=== PATIENT | female | born 1960 | race Caucasian/White ===

== ENCOUNTER 2024-09-28 21:51 | Emergency (ER) | payer MEDICAID, OTHER ==
[~2024-09-28] VITALS: Ht 172.7 cm; Wt 91.0 kg
[2024-09-28] MEDS ORDERED: ASPirin 81 mg TAB PO ONE (22:45)
--- NOTE | 2024-09-28 22:47 | ED.PDOC ---
History of Present Illness HPI Comments 63-year-old female came to ER via EMS due to chest heaviness. Patient does have a history of hypertension, status post CABG. Patient is at a green party earlier with friends, having alcohol drinks when she started having chest heaviness. Patient still heavily intoxicated at this time of care. She denies any associated shortness of breath, lightheadedness, dizziness, nausea, vomiting, cough. She frequently gets episodes of chest heaviness. Chief Complaint: Chest pain Time Seen by MD: 22:46 Primary Care Provider: ASUNCION Wang Notes: Shift Superintendent Notes Allergies: Coded Allergies: NO KNOWN ALLERGIES (Unverified , 12/16/23) Information Source: Patient Mode of Arrival: EMS Severity: Moderate Timing: Minutes Review of Systems REVIEW OF SYSTEMS: No fever, no chills, or fatigue HEENT: No sore throat, no earache, no congestion, no neck pain. Cardiac: (+) chest pain. No palpitations. Lungs: No shortness of breath, no cough. GI: No nausea, no vomiting, no diarrhea, no constipation, no abdominal pain : No dysuria, frequency, or urgency. No hematuria. Musculoskeletal: No joint pain , no joint swelling, no extremity edema. Skin: No rash, no itching. Neuro: No headache, no dizziness, no weakness Vital Signs Vital Signs Date Time Temp Pulse Resp B/P (MAP) Pulse Ox O2 Delivery O2 Flow Rate FiO2 09/28/24 23:50 98.5 66 14 109/71 (84) 100 Physical Exam General: Awake, alert and oriented. No acute distress. Skin: Skin in warm, dry and intact. Appropriate color for ethnicity. Nailbeds pink with no cyanosis. HEENT: The head is normocephalic and atraumatic. Conjunctivae are clear without exudates or hemorrhage. Sclera is non-icteric. EOM are intact. No signs of nystagmus. Eyelids are normal in appearance without swelling or lesions. Oral mucosa is pink and moist Neck: The neck is supple with normal range of motion. No JVD. Cardiac: Heart rate and rhythm are normal. No murmurs, gallops, or rubs are auscultated. Respiratory: No signs of respiratory distress. Lung sounds are clear in all lobes bilaterally without rales, ronchi, or wheezes. Abdominal: Abdomen is soft, non-tender without distention. Bowel sounds are present and normoactive in all four quadrants. Extremities: Upper and lower extremities are atraumatic in appearance without deformity or edema. Neurological: The patient is awake, alert and oriented to person, place, and time with normal speech. Speech is clear. There is no facial asymmetry. Psychiatric: Appropriate mood and affect. Good judgement and insight. No visual or auditory hallucinations. 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 Was a procedure done?: No EKG EKG : Pulse Rate (adult): 59 Cardiac Rhythm: NSR Block: RBBB Comments LAFB Differential Dx Considerations may include: Musculoskeletal pain. Coronary artery disease. [place]. Anxiety. Alcohol intoxication X-Ray, Labs, Meds, VS Vital Signs Date Time Temp Pulse Resp B/P (MAP) Pulse Ox O2 Delivery O2 Flow Rate FiO2 09/28/24 23:50 98.5 66 14 109/71 (84) 100 09/28/24 23:50 66 09/28/24 22:47 59 09/28/24 21:59 59 Time of 1ST Reevaluation: 22:42 Reevaluation 1ST: Unchanged Patient Education/Counseling: Diagnosis, Treatment Family Education/Counseling: Diagnosis, Treatment Departure 1 Departure Time of Disposition: 00:02 Impression: Primary Impression: Chest pain Additional Impression: Eloped from emergency department Disposition: 07 LEFT AWOL/ELOPED Condition: Other Comments Patient is seen and evaluated immediately upon arrival in the ambulance [facility] er. Discussed plan of care and evaluation with patient who agreed. Patient eloped from the emergency department prior to further evaluation. EKG showed no ST elevations or ischemic changes. Critical Care Note Critical Care Time?: No Stability Stability form required: No Heart Score Heart Score: Heart Score Response (Comments) Value History Moderate Suspicious 1 EKG Normal 0 Age >65 2 Risk Factors >3 or Hx ASHD 2 Troponin N/A 0 Total 5 I personally scribed for CHRISTINE TRUJILLO MD ([email or web address]) on 09/28/24 at 22:47. Electronically submitted by Charlie Troncoso ([facility]). CHRISTINE TRUJILLO MD Sep 28, 2024 22:47
[2024-09-28 23:50] VITALS: BP 109/71; PULSE 66; RESP 14; O2SAT 100
--- NOTE | 2024-10-01 08:20 | ECG ---
[facility] Test Date: 2024-09-28 Test Time: 21:59:32 Pat Name: ZEESHAN PIÑA Department: er Room: Gender: F Channel Sales Director: : 1960 Requested By: CHRISTINE TRUJILLO Order Number: [id number] Reading MD: Measurements Intervals [place] Rate: 59 P: 65 ND: 159 QRS: -97 QRSD: 158 T: 54 QT: 467 QTc: 463 Interpretive Statements Sinus rhythm RBBB and LAFB Please click the below link to view image of tracing.
== END 2024-09-29 00:15 | disposition left against medical advice (07) ==
LOC: ER 21:51 → EDBD 21:51 → ER 09-29 00:15
DX: R07.89 Other chest pain (principal); I10 Essential (primary) hypertension; E78.5 Hyperlipidemia, unspecified; Z95.1 Presence of aortocoronary bypass graft; Z53.29 Procedure and treatment not carried out because of patient's decision for other reasons
CPT/HCPCS: 93005